=== PATIENT | male | born 1975 | race Caucasian/White ===

== ENCOUNTER 2022-09-11 20:35 | Inpatient (IN) | payer BC ==
[~2022-09-11 20:35] MED LIST: Iopamidol 300 61% 100 ML VIAL FS ONE
[2022-09-11] MEDS ORDERED: Morphine 4 MG/ML VIAL ONE (21:16)
[2022-09-11] MEDS ORDERED: Ketorolac Tromethamine 30 MG/ML VIAL ONE (21:16)
[2022-09-11 21:33] LABS: #Basophils 0.1 10x3/uL (0.0-0.2); #Eosinphils 0.1 10x3/uL (0.0-0.5); #Monocytes 1.4 10x3/uL (0.0-1.1); #Neutrophils 9.9 10x3/uL (1.5-8.4); %Basophils 0.4 % (0.0-2.0); %Eosinophils 0.8 % (0.0-6.0); %Lymphocytes 17.8 % (18.0-47.0); %Monocytes 9.8 % (0.0-10.0); %Neutrophils 70.6 % (40.0-75.0); Hemoglobin 13.6 g/dL (13.5-17.5); Mean Corpuscular HGB CONC 34.3 g/dL (32.0-36.0); Mean Corpuscular Hemoglobin 32.6 pg (27.0-33.0); Mean Corpuscular Volume 95.2 fl (81.2-95.1); Mean Platelet Volume 9.7 fl (7.4-10.4); Platelet Count 235 10x3/uL (150-450); RBC Distribution Width 14.8 % (11.5-14.5); Red Blood Cell (RBC) Count 4.17 10x6/uL (4.32-5.72)
[2022-09-11] MEDS ORDERED: diphenhydrAMINE 50 MG/ML VIAL ONE (21:36)
[2022-09-11 21:47] LABS: ALT (SGPT) 27 U/L (8-55); AST (SGOT) 13 U/L (5-34); Albumin 3.9 g/dL (3.5-5.0); Alkaline Phosphatase 74 U/L (40-110); Anion Gap 13 mmol/L (10-20); BUN (Urea Nitrogen) 11 mg/dL (8.9-20.6); Calc. Creatinine Clearance 0 mL/min (70-130); Carbon Dioxide 25 mmol/L (22-29); Chloride 103 mmol/L (98-107); Estimated GFR 89; Globulin 2.4 g/dL (2.4-3.5); Glucose 100 mg/dL (70-105); Lipase 13 U/L (8-78); Protein, Total 6.3 g/dL (6.0-8.3); Sodium 137 mmol/L (136-145)
[2022-09-11 22:03] LABS: Bilirubin Neg (Negative); Blood, Urine Negative (Negative); Clarity Clear (Clear); Glucose, Urine (Dipstick) Normal (Negative); Ketone, Urine Negative (Negative); Leukocyte Negative (Negative); Nitrite Negative (Negative); Protein, Urine (Dipstick) Negative (Neg-Trace); Urobilinogen Normal mg/dL (Less than 2)
[2022-09-11] MEDS ORDERED: metroNIDAZOLE 500 MG/100 ML BAG ONE (22:25)
[2022-09-11] MEDS ORDERED: Ciprofloxacin 500 MG TAB ONE (22:26)
[2022-09-11] MEDS ORDERED: Acetaminophen 325 MG TAB PO PRN (23:01)
[2022-09-11] MEDS ORDERED: Ondansetron PF 4 MG/2 ML Vial IVP PRN (23:01)
[2022-09-11] MEDS ORDERED: Calcium Carbonate 500 MG ChewTAB PO PRN (23:01)
[2022-09-11] MEDS ORDERED: Morphine 2 MG/ML SYRINGE SLOW IVP PRN (23:05)
[2022-09-11] MEDS ORDERED: Morphine 4 MG/ML VIAL SLOW IVP PRN (23:05)
[2022-09-12 00:27] VITALS: BMI 45.1
[2022-09-12] MEDS: Lactated Ringer's 1,000 ML IV SCH ×3 (00:46→14:37)
[2022-09-12] MEDS: HYDROcodone/Acetaminophen 5/325 mg Tablet PO PRN ×5 (04:03→22:18)
[2022-09-12 04:34] LABS: #Basophils 0.1 10x3/uL (0.0-0.2); #Eosinphils 0.3 10x3/uL (0.0-0.5); #Monocytes 1.5 10x3/uL (0.0-1.1); #Neutrophils 8.1 10x3/uL (1.5-8.4); %Basophils 0.4 % (0.0-2.0); %Lymphocytes 24.9 % (18.0-47.0); %Monocytes 11.5 % (0.0-10.0); %Neutrophils 60.7 % (40.0-75.0); Hemoglobin 13.3 g/dL (13.5-17.5); Mean Corpuscular HGB CONC 33.6 g/dL (32.0-36.0); Mean Corpuscular Hemoglobin 32.3 pg (27.0-33.0); Mean Corpuscular Volume 96.1 fl (81.2-95.1); Mean Platelet Volume 9.9 fl (7.4-10.4); Platelet Count 240 10x3/uL (150-450); RBC Distribution Width 14.7 % (11.5-14.5); Red Blood Cell (RBC) Count 4.12 10x6/uL (4.32-5.72); White Blood Cell (WBC) Count 13.3 10x3/uL (3.5-10.5)
[2022-09-12 04:59] LABS: Anion Gap 11 mmol/L (10-20); BUN (Urea Nitrogen) 9 mg/dL (8.9-20.6); Calc. Creatinine Clearance 178 mL/min (70-130); Calcium 8.8 mg/dL (7.8-10.44); Carbon Dioxide 27 mmol/L (22-29); Chloride 106 mmol/L (98-107); Estimated GFR 98; Glucose 95 mg/dL (70-105); Iron 36 ug/dL (65-175); Iron Binding Capacity, Total 278 mcg/dL (261-462); Potassium 3.6 mmol/L (3.5-5.1); Sodium 140 mmol/L (136-145)
[2022-09-12] MEDS: metroNIDAZOLE 500 MG in Premix Bag 1 BAG IVPB SCH ×3 (05:06→22:19)
[2022-09-12 05:07] LABS: CRP (Inflammatory) 5.69 mg/dL (= or < 0.5)
[2022-09-12 05:10] LABS: Ferritin 90.48 ng/mL (22-322)
[2022-09-12] MEDS: Pantoprazole 40 MG VIAL IVP SCH (08:20)
[2022-09-12 22:33] LABS: Campy jejuni + coli by PCR Negative (Negative); STEC Shiga Toxin 1+2 POSITIVE (Negative); Salmonella spp. by PCR Negative (Negative); Shigella spp + EIEC by PCR Negative (Negative)
[2022-09-13] MEDS: Lactated Ringer's 1,000 ML IV SCH ×2 (02:25→07:42)
[2022-09-13] MEDS: metroNIDAZOLE 500 MG in Premix Bag 1 BAG IVPB SCH (06:17)
[2022-09-13] MEDS: Pantoprazole 40 MG VIAL IVP SCH (07:42)
[2022-09-13] MEDS ORDERED: NABUMETONE 750 MG PO PRN (11:32)
[2022-09-13] MEDS ORDERED: Lactated Ringer's 1,000 ML IV SCH (11:45)
[2022-09-14 06:54] LABS: Hemoglobin 12.5 g/dL (13.5-17.5); Mean Corpuscular Hemoglobin 32.3 pg (27.0-33.0); Mean Corpuscular Volume 95.1 fl (81.2-95.1); Mean Platelet Volume 10.3 fl (7.4-10.4); Platelet Count 242 10x3/uL (150-450); RBC Distribution Width 14.7 % (11.5-14.5); Red Blood Cell (RBC) Count 3.87 10x6/uL (4.32-5.72); White Blood Cell (WBC) Count 10.9 10x3/uL (3.5-10.5)
[2022-09-14 07:31] LABS: Anion Gap 12 mmol/L (10-20); BUN (Urea Nitrogen) 14 mg/dL (8.9-20.6); Calc. Creatinine Clearance 188 mL/min (70-130); Calcium 9.1 mg/dL (7.8-10.44); Carbon Dioxide 25 mmol/L (22-29); Chloride 106 mmol/L (98-107); Estimated GFR 105; Glucose 102 mg/dL (70-105); Potassium 4.2 mmol/L (3.5-5.1); Sodium 139 mmol/L (136-145)
[2022-09-14] MEDS ORDERED: Folic Acid 1 MG TAB PO SCH (09:00)
[2022-09-14] MEDS ORDERED: Allopurinol 300 MG TAB PO SCH (09:00)
[2022-09-14 12:08] VITALS: BP 152/94; TEMP 97.9
[2022-09-20] MEDS ORDERED: Methotrexate Sodium 2.5 MG TAB PO SCH (09:00)
== END 2022-09-14 13:57 | disposition home or self-care (01) | DRG 372 ==
LOC: CSHERS 20:35 → CSHTELE 22:53
PROVIDERS: ADMIT Student in an Organized Health Care Education/Training Program; ATTEND Internal Medicine
DX: A04.4 Other intestinal Escherichia coli infections (principal); K92.1 Melena; I10 Essential (primary) hypertension; M06.9 Rheumatoid arthritis, unspecified; M10.9 Gout, unspecified; B96.23 Unspecified Shiga toxin-producing Escherichia coli [E. coli] [STEC] as the cause of diseases classified elsewhere; G47.33 Obstructive sleep apnea (adult) (pediatric); L40.50 Arthropathic psoriasis, unspecified; Z20.822 Contact with and (suspected) exposure to COVID-19; Z98.890 Other specified postprocedural states; Z98.1 Arthrodesis status; Z82.49 Family history of ischemic heart disease and other diseases of the circulatory system; Z83.71 Family history of colonic polyps; Z88.8 Allergy status to other drugs, medicaments and biological substances; Z88.2 Allergy status to sulfonamides
CPT/HCPCS: 36415; 74177; 80048; 80053; 81003; 82274; 82607; 82728; 83540; 83550; 83630; 83690; 85025; 85027; 85652; 86140; 87324; 87449; 87505; 94660; 96361; 96365; 96375; C9113; J1200; J1885; J1956; J2270; J7120; Q9967; U0003; U0005